=== PATIENT | female | born 1980 | race American Indian/Alaskan Native ===

== ENCOUNTER 2017-03-03 19:19 | Emergency (ER) | payer MEDICAID ==
[2017-03-03 21:22] LABS: Anion Gap 17 mmol/L; BUN/Creatinine Ratio 14; Blood Urea Nitrogen 11 mg/dL (7-17); Carbon Dioxide 26 mmol/L (22-30); Chloride 100.6 mmol/L (98-107); Glucose 108 mg/dL (65-100); Potassium 3.9 mmol/L (3.6-5.0); Sodium 140 mmol/L (137-145)
[2017-03-03 21:27] LABS: Hematocrit 29.2 % (30.3-42.9); Hemoglobin 9.1 gm/dl (10.1-14.3); Mean Corpuscular HGB Conc 31 % (30-34); Mean Corpuscular Hemoglobin 20 pg (28-32); Mean Corpuscular Volume 66 fl (79-97); Mean Platelet Volume 8.7 fl (6-12); Platelet Count 463 K/mm3 (140-440); Red Blood Count 4.45 M/mm3 (3.65-5.03); Red Cell Distribution Width 19.7 % (13.2-15.2); White Blood Count 9.2 K/mm3 (4.5-11.0)
[2017-03-03 21:28] LABS: Basophils % (Auto) 0.6 % (0.0-1.8); Eosinophils % (Auto) 1.3 % (0.0-4.3)
--- NOTE | 2017-03-03 23:53 | Ultrasound Report ---
FINAL REPORT PROCEDURE: US TRANSVAGINAL TECHNIQUE: Real-time transabdominal sonography in multiple planes of the pelvis was performed. Transvaginal sonography was then performed to better evaluate the structures with image documentation. Grayscale, and color flow Doppler imaging. HISTORY: heavy bleeding with blood clots COMPARISON: No prior studies are available for comparison. FINDINGS: UTERUS Size: 9.1 x 6.5 cm. Endometrial thickness: 5 mm. Orientation: anteverted. Cervix: Normal. Fibroids/masses: There are 3 hypoechoic masses compatible with fibroids, measuring 4.1 cm in the posterior aspect, 2.9 cm on the left, and 1.8 cm at the anterior aspect. RIGHT Ovary: 3.4 x 2.3 x 3.3 cm. Appearance: There are cyst measuring up to 1.5 cm. There is echogenic focus with possible calcification. Doppler images: Normal spectral waveforms and color flow. The systolic and diastolic velocities are within normal limits. LEFT Ovary: 2.6 x 2.1 x 1.7 cm. Appearance: There is 1.0 cm cyst. Doppler images: Normal spectral waveforms and color flow. The systolic and diastolic velocities are within normal limits. Pelvic fluid: None. Other: None. IMPRESSION: Fibroid uterus. Adnexal follicles.
--- NOTE | 2017-03-04 00:11 | Ultrasound Report ---
FINAL REPORT EXAM: US PELVIC COMPLETE HISTORY: Vaginal bleeding TECHNIQUE: Transabdominal imaging was obtained the pelvis including Doppler interrogation of the uterus and adnexa. FINDINGS: The uterus is enlarged measuring 9.4 cm by 5.8 cm x 6.2 cm. There are 3 hypoechoic myometrial masses compatible with fibroids in the uterus. The largest is in the posterior wall of the body of uterus right of midline measuring 4.1 cm x 4.2 cm x 3.9 cm. Another fibroid in the posterior wall of the body uterus left midline measures 2.9 cm x 2.2 cm x 2.5 cm. There is additional anterior fibroid measuring about 1.8 cm in diameter. The endometrial thickness is 5.3 millimeters. Free fluid is not seen. The right ovary measures 3.4 cm x 2.3 cm x 3.3 cm. There are benign-appearing follicles in the right ovary measuring up to 1.9 cm in diameter. The blood flow is normal to the right ovary. The left ovary measures 2.6 cm x 1.7 cm x 2.1 cm. There is a benign-appearing follicle measuring 1 cm in diameter. The blood flow is normal to the left ovary. IMPRESSION: Enlarged uterus containing 3 fibroids as described. Normal-appearing endometrium. Normal blood flow to both ovaries with benign appearing functional cysts/follicles.
[2017-03-04 00:33] LABS: Bilirubin,Urine NEG (Negative); Blood,Urine LG (Negative); Ketones,Urine NEG (Negative); Leukocyte Esterase,Urine SM (Negative); Nitrite,Urine NEG (Negative); Urobilinogen,Urine < 2.0 mg/dL (<2.0)
[2017-03-04 00:45] LABS: RBC,Urine > 182.0 /HPF (0.0-6.0); WBC,Urine < 1.0 /HPF (0.0-6.0)
--- NOTE | 2017-03-04 10:24 | Emergency Department Report ---
ED Female HPI - General Chief complaint: Vaginal Bleeding Stated complaint: HEAVY VAGINAL BLEEDING Time Seen by Provider: 03/04/17 09:50 Source: patient Mode of arrival: Ambulatory Limitations: No Limitations - History of Present Illness Initial comments: This is a 37-year-old female nontoxic, well nourished in appearance, no acute signs of distress presents to the ED with c/o of chronic intermittent vaginal bleeding. Patient stated she has been having abnormal heavy menstrual cycle for the past year. Patient denies falling up with a report programmer. Denies any abdominal pain, dizziness, syncope, fever, chills, nausea, vomiting, chest pain shortness of breath. Patient denies any drug allergies. Past medical history is hypertension. Patient stated had a heavy menstrual cycle for 2 days on 2016 and 2 days ago menstrual cycle started again. MD Complaint: vaginal bleeding -: year(s) Severity scale (0 -10): 0 Consistency: intermittent Improves with: none Worsens with: none Associated Symptoms: vaginal bleeding. denies: vaginal discharge, abdominal pain, nausea/vomiting, fever/chills, headaches, loss of appetite, dysuria, hematuria, rash, seizure, shortness of breath, syncope, weakness - Related Data Previous Rx's Medication Instructions Recorded Last Taken Type Famotidine [Pepcid] 20 mg PO QDAY #20 tablet 02/24/14 Unknown Rx amLODIPine [Norvasc] 5 mg PO DAILY #90 tab 02/24/14 Unknown Rx traMADol [Ultram] 50 mg PO Q6HR PRN #14 tablet 02/24/14 Unknown Rx traMADol [Ultram] 50 mg PO Q6HR PRN #12 tablet 03/04/17 Unknown Rx Allergies Allergy/AdvReac Type Severity Reaction Status Date / Time garlic Allergy Rash Verified 03/03/17 20:47 peach [[place]] Allergy Hives Verified 09/20/13 12:30 ED Review of Systems ROS: Stated complaint: HEAVY VAGINAL BLEEDING Other details as noted in HPI Constitutional: denies: chills, fever Eyes: denies: eye pain, eye discharge, vision change ENT: denies: ear pain, throat pain Respiratory: denies: cough, shortness of breath, wheezing Cardiovascular: denies: chest pain, palpitations Endocrine: no symptoms reported Gastrointestinal: denies: abdominal pain, nausea, diarrhea Genitourinary: abnormal menses. denies: urgency, dysuria, discharge Musculoskeletal: denies: back pain, joint swelling, arthralgia Skin: denies: rash, lesions Neurological: denies: headache, weakness, paresthesias Psychiatric: denies: anxiety, depression Hematological/Lymphatic: denies: easy bleeding, easy bruising ED Past Medical Hx - Past Medical History Hx Hypertension: Yes Hx Kidney Stones: Yes - Surgical History Hx Cholecystectomy: Yes (2001) Additional Surgical History: tubal ligation, - Social History Smoking Status: Never Smoker Substance Use Type: Alcohol - Medications Home Medications: Home Medications Medication Instructions Recorded Confirmed Last Taken Type Famotidine [Pepcid] 20 mg PO QDAY #20 tablet 02/24/14 Unknown Rx amLODIPine [Norvasc] 5 mg PO DAILY #90 tab 02/24/14 Unknown Rx traMADol [Ultram] 50 mg PO Q6HR PRN #14 tablet 02/24/14 Unknown Rx traMADol [Ultram] 50 mg PO Q6HR PRN #12 tablet 03/04/17 Unknown Rx ED Physical Exam - General Limitations: No Limitations General appearance: alert, in no apparent distress - Head Head exam: Present: atraumatic, normocephalic - Eye Eye exam: Present: normal appearance, PERRL, EOMI Pupils: Present: normal accommodation - ENT ENT exam: Present: normal exam, normal orophraynx, mucous membranes moist, TM's normal bilaterally, normal external ear exam - Neck Neck exam: Present: normal inspection, full ROM. Absent: tenderness, meningismus, lymphadenopathy, thyromegaly - Respiratory Respiratory exam: Present: normal lung sounds bilaterally. Absent: respiratory distress, wheezes, rales, rhonchi, stridor, chest wall tenderness, accessory muscle use, decreased breath sounds, prolonged expiratory - Cardiovascular Cardiovascular Exam: Present: regular rate, normal rhythm, normal heart sounds. Absent: irregular rhythm, systolic murmur, diastolic murmur, rubs, gallop - GI/Abdominal GI/Abdominal exam: Present: soft, normal bowel sounds. Absent: distended, tenderness, guarding, rebound, rigid, diminished bowel sounds - Rectal Rectal exam: Present: deferred - External exam: Present: normal external exam, other (nurse licensed practical Nia present during exam). Absent: erythema, swelling, lesions, lacerations, ecchymosis, bleeding Speculum exam: Present: normal speculum exam, vaginal bleeding, other ( nurse licensed practical Nia present during exam). Absent: erythema, vaginal discharge, cervical discharge, foreign body, tissue, laceration Bi-manual exam: Present: normal bi-manual exam, other (nurse licensed practical Nia present during exam). Absent: cervical motion tendernes, adnexal tenderness, adnexal mass, uterine enlargement, uterine tenderness - Extremities Exam Extremities exam: Present: normal inspection, full ROM, normal capillary refill. Absent: tenderness, pedal edema, joint swelling, calf tenderness - Back Exam Back exam: Present: normal inspection, full ROM. Absent: tenderness, CVA tenderness (R), CVA tenderness (L), muscle spasm, paraspinal tenderness, vertebral tenderness, rash noted - Neurological Exam Neurological exam: Present: alert, oriented X3, CN II-XII intact, normal gait, reflexes normal - Psychiatric Psychiatric exam: Present: normal affect, normal mood - Skin Skin exam: Present: warm, dry, intact, normal color. Absent: rash ED Course Vital Signs 03/03/17 03/04/17 03/04/17 20:44 04:24 10:37 Temperature 98 F 98.2 F 98.7 F Pulse Rate 109 H 98 H 91 H Respiratory 18 18 18 Rate Blood Pressure 176/97 188/117 Blood Pressure 160/92 [Right] O2 Sat by Pulse 100 99 100 Oximetry - Reevaluation(s) Reevaluation #1: 03/04/17 10:26 Patient is speaking in full sentences with no signs of distress noted. ED Medical Decision Making - Lab Data Result diagrams: 03/03/17 20:51 03/03/17 20:51 - Medical Decision Making This is a 37-year-old female that presents abnormal menstrual cycle and fibroids. Patient is stable and was examined by me. CBC, BMP UA within normal limits. Ultrasound has been obtained and dictated the radiologist with impression of fibroids. Patient was notified of results of ultrasound and labs with noted by the patient. Viral vital signs stable. Patient's hemodynamically stable. Patient received Ultram at discharge due to slight pain that she stated she has intermittently get and patient was instructed not to operate any machinery while taking Ultram due to drowsiness. Patient was notified Follow-up with a primary care doctor in 3-5 days or if symptoms worsen and continue return to emergency room as soon as possible. At time time of discharge, the patient does not seem toxic or ill in appearance. No acute signs of distress noted. Patient agrees to discharge treatment plan of care. No further questions noted by the patient. Patient was notified that she has hypertension and patient that she is aware and has been out of her medication but states she does not know the name or dose of the medication. Patient as she does have a primary care doctor that she will follow acid discharged. Patient was instructed to keep a diary of blood pressure and presented to primary care doctor within 24 hours. Critical care attestation.: If time is entered above; I have spent that time in minutes in the direct care of this critically ill patient, excluding procedure time. ED Disposition Clinical Impression: Abnormal menstrual cycle, Vaginal bleeding Fibroids Qualifiers: Uterine leiomyoma location: unspecified location Qualified Code(s): D25.9 - Leiomyoma of uterus, unspecified Hypertension Qualifiers: Hypertension type: unspecified Qualified Code(s): I10 - Essential (primary) hypertension Disposition: - TO HOME OR SELFCARE Is pt being admited?: No Does the pt Need Aspirin: No Condition: Stable Instructions: Tramadol (By mouth), Menstruation (ED), Uterine Fibroids (ED), Hypertension (ED) Additional Instructions: Follow-up with a primary care doctor/report programmer in 24 hours or if symptoms worsen and continue return to emergency room as soon as possible. Do not operate any machinery while taking Ultram due to drowsiness You have hypertension that is uncontrolled you must see a primary care doctor within 24 hours for possible medical treatment and keep a daily diary of blood pressure and presented to primary care doctor. Prescriptions: traMADol [Ultram] 50 mg PO Q6HR PRN #12 tablet PRN Reason: Pain Referrals: EVANS GRANDE MD [Primary Care Provider] - 3-5 Days LOS PARTIDA MD [Staff Physician] - 3-5 Days [facility] [Outside] - 3-5 Days [facility] [Outside] - 3-5 Days RAMONA LOVETT MD [Staff Physician] - 3-5 Days Forms: Work/School Release Form(ED)
[2017-03-04 10:37] VITALS: BP 160/92
== END 2017-03-04 10:48 | disposition home or self-care (01) ==
LOC: ED 19:19
DX: N92.5 Other specified irregular menstruation (principal); N93.8 Other specified abnormal uterine and vaginal bleeding; D25.9 Leiomyoma of uterus, unspecified; I10 Essential (primary) hypertension; Z90.49 Acquired absence of other specified parts of digestive tract; Z91.018 Allergy to other foods
CPT/HCPCS: 36415; 76830; 76856; 80048; 81001; 84702; 85025; 86850; 86900; 86901

== ENCOUNTER 2017-05-28 08:23 | Observation (INO) | payer MEDICAID ==
[2017-05-26 11:14] LABS: Basophils % (Auto) 0.5 % (0.0-1.8); Eosinophils # (Auto) 0.1 K/mm3 (0.0-0.4); Eosinophils % (Auto) 1.2 % (0.0-4.3); Hematocrit 28.8 % (30.3-42.9); Hemoglobin 9.1 gm/dl (10.1-14.3); Lymphocytes # (Auto) 1.7 K/mm3 (1.2-5.4); Lymphocytes % (Auto) 27.2 % (13.4-35.0); Mean Corpuscular HGB Conc 32 % (30-34); Mean Corpuscular Hemoglobin 21 pg (28-32); Mean Corpuscular Volume 67 fl (79-97); Monocytes # (Auto) 0.4 K/mm3 (0.0-0.8); Monocytes % (Auto) 6.7 % (0.0-7.3); Platelet Count 446 K/mm3 (140-440); Red Blood Count 4.33 M/mm3 (3.65-5.03); Red Cell Distribution Width 19.7 % (13.2-15.2)
[2017-05-26 11:27] LABS: BUN/Creatinine Ratio 17; Blood Urea Nitrogen 12 mg/dL (7-17); Calcium 8.1 mg/dL (8.4-10.2); Hemolysis Index 0
--- NOTE | 2017-05-26 11:34 | Anesthesia Consultation ---
Anesthesia Consult and Med Hx Date of service: 05/26/17 - Airway Anesthetic Teeth Evaluation: Good ROM Head & Neck: Adequate Mental/Hyoid Distance: Adequate Mallampati Class: Class II Intubation Access Assessment: Probably Good (multiple body piercings including the tongue) - Pulmonary Exam CTA: Yes - Cardiac Exam Cardiac Exam: RRR - Pre-Operative Health Status ASA Pre-Surgery Classification: ASA2 Proposed Anesthetic Plan: General - Pulmonary Hx Smoking: No Hx Asthma: No - Cardiovascular System Hx Hypertension: Yes (since 2001) Hx Coronary Artery Disease: No Hx Angina: No - Central Nervous System Hx Psychiatric Problems: Yes - Gastrointestinal Hx Ulcer: Yes Hx Gastroesophageal Reflux Disease: No - Endocrine Hx Renal Disease: No Hx Insulin Dependent Diabetes: No - Hematic Hx Anemia: Yes - Other Systems Hx Alcohol Use: Yes (occas) Hx Cancer: No - Additional Comments Anesthesia Medical History Comments: BTL and lumpectomy without issues as per patient
--- NOTE | 2017-05-27 16:05 | History and Physical Report ---
History of Present Illness Date of examination: 05/27/17 Date of admission: 05/28/2017 Chief complaint: DUB and pelvic pain History of present illness: 37y/o with pelvic pain and dysfunctional uterine bleeding. She notes having worsening in her symptoms within the last 6 months. Her complaints have not been adequately controlled with medical management. She has elected for definitive surgical management. Past History Past Medical History: hypertension, other (bipolar disorder) Past Surgical History: cholecystectomy, other (tubal ligation) Social history: single - Obstetrical History : 4 Para: 3 Hx # Term Pregnancies: 3 Number of Pregnancies: 0 Spontaneous Abortions: 1 Induced : 0 Number of Living Children: 3 Medications and Allergies Allergies Allergy/AdvReac Type Severity Reaction Status Date / Time garlic Allergy Rash Verified 03/03/17 20:47 peach [[place]] Allergy Hives Verified 09/20/13 12:30 Home Medications Medication Instructions Recorded Confirmed Last Taken Type Famotidine [Pepcid] 20 mg PO QDAY #20 tablet 02/24/14 Unknown Rx amLODIPine [Norvasc] 5 mg PO DAILY #90 tab 02/24/14 Unknown Rx traMADol [Ultram] 50 mg PO Q6HR PRN #14 tablet 02/24/14 Unknown Rx traMADol [Ultram] 50 mg PO Q6HR PRN #12 tablet 03/04/17 Unknown Rx Active Meds: Active Medications Bupivacaine HCl (Marcaine 0.5%) 20 ml INFILTRATI PREOP NR Stop: 05/28/17 23:00 Famotidine (Pepcid) 20 mg IV PREOP NR Stop: 05/28/17 23:59 Fentanyl (Sublimaze) 100 mcg IV ONCE MAURI Stop: 05/28/17 23:33 Sodium Chloride (Nacl 0.9% 1000 Ml) 1,000 mls @ 42 mls/hr IV DIRECT MAURI Lidocaine (Xylocaine 1% 20 Ml) 10 ml INFILTRATI PREOP NR Stop: 05/28/17 23:44 Midazolam HCl (Versed) 2 mg IV PREOP PRN PRN Reason: Anxiety Sodium Chloride (Nacl P/F Vial (10 Ml)) 1 ml INFILTRATI PREOP NR Stop: 05/28/17 23:59 Review of Systems All systems: negative Genitourinary: vaginal bleeding, pelvic pain - Vital Signs Vital signs: Vital Signs Temp Pulse Resp BP 98.7 F 76 18 124/80 05/26/17 10:45 05/26/17 10:45 05/26/17 10:45 05/26/17 10:45 Temp Pulse Resp BP Pulse Ox 98.7 F 76 18 124/80 05/26/17 10:45 05/26/17 10:45 05/26/17 10:45 05/26/17 10:45 - Physical Exam Breasts: Positive: deferred Cardiovascular: Regular rate Lungs: Positive: Clear to auscultation Abdomen: Positive: normal appearance Results Result Diagrams: 05/26/17 11:08 05/26/17 11:08 All other labs normal. Assessment and Plan - Patient Problems (1) Dysfunctional uterine bleeding Current Visit: No Status: Acute Plan to address problem: scheduled for a robotic hysterectomy/bilateral salpingectomy (2) Anemia Current Visit: No Status: Acute
[~2017-05-28 08:23] MED LIST: ANCEF/STERILE WATER 2 GM/20 ML 2 GM/20 ML SYRINGE IV SCH; GELFOAM POWDER 1GM MM ONE; MARCAINE 0.5% INFILTRATI NR; NACL 0.9% 1000 ML 1,000 ML IV SCH; NACL P/F VIAL (10 ML) INFILTRATI NR; NEOSPORIN GU IR ONE; PEPCID IV NR; THROMBIN (BOVINE) TP ONE; XYLOCAINE 1% 20 mL INFILTRATI NR
[2017-05-28] MEDS ORDERED: DILAUDID ONE ×2 (08:35→12:04)
[2017-05-28] MEDS ORDERED: ZEMURON IV ONE (08:35)
[2017-05-28] MEDS ORDERED: DIPRIVAN 10 MG/ML IV ONE (08:35)
[2017-05-28] MEDS ORDERED: XYLOCAINE MPF 2% ONE (08:36)
--- NOTE | 2017-05-28 08:52 | Anesthesia Day of Surgery ---
Anesthesia Day of Surgery - Day of Surgery Patient Examined: Yes Patient H&P Reviewed: Yes Patient is NPO: Yes
[2017-05-28] MEDS ORDERED: MARCAINE 0.25% INFILTRATI ONE (08:59)
[2017-05-28] MEDS ORDERED: DECADRON ONE ×2 (09:01→10:48)
[2017-05-28] MEDS: VERSED IV PRN ×2 (09:18→09:21)
[2017-05-28] MEDS: SUBLIMAZE IV SCH ×2 (09:18→09:21)
[2017-05-28] MEDS ORDERED: NACL 0.9% 1000 ML 1,000 ML ONE (10:31)
[2017-05-28] MEDS ORDERED: ZOFRAN ONE (10:47)
[2017-05-28] MEDS ORDERED: NACL 0.9% IR ONE ×2 (10:48)
[2017-05-28] MEDS ORDERED: NEOSPORIN GU IR ONE (10:48)
[2017-05-28] MEDS ORDERED: THROMBIN (BOVINE) TP ONE (10:49)
[2017-05-28] MEDS ORDERED: GELFOAM POWDER 1GM MM ONE (10:49)
[2017-05-28] MEDS ORDERED: ROBINUL ONE (11:09)
[2017-05-28] MEDS ORDERED: NEOSTIGMINE ONE (11:09)
--- NOTE | 2017-05-28 11:13 | Operative Report ---
Operative Report Operative Report: Date of surgery: 12/28/2017 Preoperative diagnoses:. Dysfunctional uterine bleeding; pelvic pain; uterine fibroids Postoperative diagnoses: Same as above Procedure: Robotic hysterectomy; bilateral salpingectomy Surgeon: Radha Donaldson M.D. Crm Functional Analyst: Susan Quigley Anesthesia: Gen. endotracheal anesthesia Estimated blood loss: 50 Milliliters Pathology: Uterus, cervix, bilateral tubes Indication: 37-year-old with dysfunctional uterine bleeding and chronic pelvic pain. The patient's menorrhagia was significant enough to cause iron deficiency anemia. Procedure: The patient was taken to the operating room and given general endotracheal anesthesia without complication. She is prepped and draped in a normal sterile fashion. A bivalve speculum was placed in the patient's vagina and a single- tooth tenaculum placed on the anterior lip of the cervix. The uterus was sounded with the uterine sound. A [employer] uterine manipulator was placed in the bivalve speculum was then removed. Attention was then turned to the patient's abdomen where a millimeter supra umbilical skin incision was then made. A Veress needle was placed and peritoneal entry was verified water-filled syringe. Insufflation of the peritoneal cavity was performed with CO2 gas. The 12 mm trocar was then placed under direct visualization. An additional 8 mm trocar was placed on the patient's left and right lateral side just opposite of the supraumbilical trocar. An additional 5 mm right lateral trocar was then placed as the accessory port. The patient was then placed in steep Trendelenburg. General survey of the patient's abdomen and pelvis revealed a mildly enlarged uterus with evidence of small leiomyomas. The tubes and ovaries were normal bilaterally. The da Yeny robot was then engaged. A fenestrated forcep was placed in arm 2 and a vessel sealer was placed in arm 1. The surgeon then transferred to the surgical console. The mesosalpinx was then isolated on the right. The vessel sealer was used to coagulate the mesosalpinx which was then transected. The tube was transected from the ovary. The tubo-ovarian ligament was then coagulated and transected. The round ligament was then coagulated and transected also. The vesicouterine peritoneum was then entered from the patient's right side. The uterine vessels were then coagulated with the vessel sealer. The vessels were then transected . Attention was then turned to the patient's left side where the tubo-ovarian ligament and mesosalpinx were again isolated coagulated and transected. The vesical peritoneum was then entered from the left and joined in the midline. Peritoneum was reflected off of the lower uterine segment. Uterine vessels were then coagulated and then transected. The blood supply to the uterus was adequately contained, a posterior colpotomy was made. The V care ring was visualized. Posterior colpotomy was created with the monopolar scissors. The incision was continued circumferentially until anterior colpotomy was made. The cervix and uterus were amputated from the vaginal cuff. The uterus was then removed along with the tubes bilaterally through the vagina and a warm laparotomy sponge was placed and maintain the pneumoperitoneum. The vaginal cuff was then closed in a running fashion with V lock suture. Irrigation of the pelvis was performed. Gelfoam with thrombin was applied to the incision. The supraumbilical 12 mm trocar site was closed with the Dar Cardenas device. The skin was then reapproximated with 4-0 Monocryl. The tissue was sent to pathology which included the cervix and uterus. The patient was then successfully extubated. She was then taken to the recovery room in stable condition. All sponge laps and needle counts were correct x2.
[2017-05-28] MEDS ORDERED: NARCAN 0.4 MG/1 ML IV PRN (11:16)
[2017-05-28] MEDS ORDERED: TYLENOL PO PRN (11:17)
[2017-05-28] MEDS ORDERED: MILK OF MAGNESIA PO PRN (11:17)
[2017-05-28] MEDS ORDERED: ZOFRAN IV PRN (11:17)
[2017-05-28] MEDS ORDERED: MOTRIN PO PRN (11:17)
[2017-05-28] MEDS ORDERED: MORPHINE PCA 30MG/30ML IV SCH (12:00)
[2017-05-28] MEDS: DILAUDID IV PRN ×2 (12:00→12:10)
--- NOTE | 2017-05-28 12:14 | Post Anesthesia Evaluation ---
- Post Anesthesia Evaluation Patient Participated: Yes Airway Patent: Yes Stable Respiratory Function: Yes Nausea/Vomiting: No Temp > 96.8F: Yes Pain Manageable: Yes Adequeate Hydration: Yes Anesthesia Complications: No
[2017-05-28] MEDS ORDERED: D5LR 1,000 ML IV ONE (12:19)
[2017-05-28] MEDS: TORADOL IV SCH ×2 (13:49→20:03)
[2017-05-28] MEDS: D5LR 1,000 ML IV SCH (20:09)
[2017-05-29] MEDS: TORADOL IV SCH (01:46)
[2017-05-29] MEDS: D5LR 1,000 ML IV SCH (03:12)
[2017-05-29 05:15] LABS: Hematocrit 26.8 % (30.3-42.9); Hemoglobin 8.3 gm/dl (10.1-14.3)
[2017-05-29] MEDS: PERCOCET 5/325 PO PRN ×2 (05:56→09:39)
--- NOTE | 2017-05-29 08:42 | Progress Note ---
Assessment and Plan - Patient Problems (1) Dysfunctional uterine bleeding Current Visit: No Status: Acute Plan to address problem: Patient doing well Discharge home (2) Anemia Current Visit: No Status: Acute Subjective - Subjective Date of service: 05/29/17 Interval history: The patient is without any significant complaints. She reports being able to void after removal of her Covarrubias. She denies any nausea and vomiting. Patient reports: appetite normal, voiding normally, pain well controlled Objective - Vital Signs Latest vital signs: Vital Signs Temp Pulse Resp BP BP Pulse Ox 05/29/17 05:58 18 05/29/17 05:56 20 05/29/17 04:57 98.8 F 75 18 130/80 05/29/17 03:55 18 05/29/17 01:46 20 05/29/17 01:44 20 05/29/17 01:25 98.4 F 68 22 115/67 05/29/17 00:00 20 05/28/17 22:00 18 05/28/17 21:00 98.3 F 73 18 127/75 05/28/17 20:09 20 05/28/17 20:03 20 05/28/17 18:00 20 05/28/17 16:09 97.4 F L 90 18 139/91 97 05/28/17 13:00 97.6 F 80 22 149/87 05/28/17 12:50 97.6 F 80 20 149/87 95 05/28/17 12:40 17 05/28/17 12:15 76 14 138/92 98 05/28/17 12:10 15 05/28/17 12:00 71 15 137/92 100 05/28/17 11:45 73 14 134/85 100 05/28/17 11:40 75 15 130/81 96 05/28/17 11:37 97.2 F L 99 H 12 127/81 95 05/28/17 09:35 81 13 114/76 99 05/28/17 09:30 82 13 119/76 97 05/28/17 09:25 75 13 117/76 100 05/28/17 09:20 13 118/74 97 05/28/17 09:15 76 12 127/79 100 05/28/17 08:45 99.6 F 90 16 119/71 98 Intake and Output 05/28/17 05/29/17 05/29/17 22:59 06:59 14:59 Intake Total 880 1421.25 Output Total 2100 1600 Balance -1220 -178.75 Intake: IV 881.25 D5lr 1,000 ml @ 125 mls/ 881.25 hr IV DIRECT MAURI Rx#: [id number] Intake, Free Water 520 540 Other 360 Output: Urine 2100 1600 Indwelling Catheter 2100 1600 Other: Total, Intake Amount 360 Total, Output Amount 800 800 Voiding Method Indwelling Catheter - Exam Abdomen: Present: normal appearance Incision: Present: normal - Labs Labs: Abnormal lab results 05/29/17 Range/Units 04:30 Hgb 8.3 L (10.1-14.3) gm/dl Hct 26.8 L (30.3-42.9) %
--- NOTE | 2017-05-29 08:43 | Discharge Summary ---
Providers - Providers Date of Admission: 05/28/17 11:17 Date of discharge: 05/29/17 Attending physician: ARTEMIO DE LA CRUZ Primary care physician: ARTEMIO DE LA CRUZ Hospitalization Reason for admission: other (dysfunctional uterine bleeding and uterine fibroids ) Procedure: other (robotic hysterectomy and bilateral salpingectomy) Incision: normal Discharge diagnosis: other (dysfunctional uterine bleeding and uterine fibroids) Hospital course: The patient was admitted that he has surgery and underwent a robotic hysterectomy and bilateral salpingectomy. Please see operative note for details of surgery. Postoperative course is uneventful. Condition at discharge: Good Disposition: [id number] TO HOME OR SELFCARE - Discharge Diagnoses (1) Dysfunctional uterine bleeding Status: Acute (2) Anemia Status: Acute Plan - Discharge Medications Prescriptions: Docusate Sodium [Colace] 100 mg PO BID PRN #60 capsule PRN Reason: Constipation Ferrous Sulfate [Feosol 325 MG tab] 325 mg PO BID #60 tablet Ibuprofen [Motrin] 800 mg PO Q8HR PRN #60 tablet PRN Reason: Pain Oxycodone HCl/Acetaminophen [Percocet 7.5/325 mg] 1 each PO Q6HR PRN #45 tablet PRN Reason: Pain - Provider Discharge Summary Activity: no sex for 6 weeks, no heavy lifting 4 weeks, no strenuous exercise Diet: routine Instructions: routine Additional instructions: [] Smoking cessation referral if applicable(refer to patient education folder for contact #) [] Refer to [facility] Booklet Call your doctor immediately for: * Fever > 100.5 * Heavy vaginal bleeding ( >1 pad per hour) * Severe persistent headache * Shortness of breath * Reddened, hot, painful area to leg or breast * Drainage or odor from incision. * Keep incision clean and dry at all times and follow doctor's instructions regarding bathing/showering Follow-up with Dr. Chakraborty in 4 weeks - Follow up plan
[2017-05-29 15:22] VITALS: BP 141/93
== END 2017-05-29 12:30 | disposition home or self-care (01) ==
LOC: OR 08:23 → OB 11:17
PROVIDERS: ADMIT Obstetrics & Gynecology; ATTEND Obstetrics & Gynecology
DX: N93.8 Other specified abnormal uterine and vaginal bleeding (principal); D25.9 Leiomyoma of uterus, unspecified; I10 Essential (primary) hypertension; D50.0 Iron deficiency anemia secondary to blood loss (chronic); F31.9 Bipolar disorder, unspecified
CPT/HCPCS: 36415; 58571; 64450; 80048; 84703; 85014; 85018; 85025; 86850; 86900; 86901; 88307; 96374; 96375; 96376; A4217; A4649; G0378; J0690; J1100; J1170; J1885; J2250; J2270; J2405; J2704; J2710; J3010; J7030; J7121; S2900